=== PATIENT | male | born 1995 | race Caucasian/White ===

== ENCOUNTER 2017-06-08 13:14 | Day surgery (SDC) | payer OTHER ==
[~2017-06-08] VITALS: Ht 172.7 cm; Wt 90.5 kg
[2017-06-08] MEDS ORDERED: WELLBUTRIN SR100 M1 PO (13:28)
[2017-06-08] MEDS ORDERED: SINEQUAN 1010 MG/CAP PO (13:29)
[2017-06-08] MEDS ORDERED: NAPROSYN500 MG PO (13:30)
[2017-06-08] MEDS ORDERED: ROBAXIN 50500 MG/TAB PO (13:30)
[2017-06-08 13:40] VITALS: BP 118/83; PULSE 75; TEMP 98.9
[2017-06-08 14:35] VITALS: BP 119/61; PULSE 95; TEMP 98.5
[2017-06-08 14:50] VITALS: BP 117/67; PULSE 83
[2017-06-08] MEDS ORDERED: LEVBID0.375 MG PO (14:50)
[2017-06-08 15:05] VITALS: BP 107/69; PULSE 76
[2017-06-08 15:20] VITALS: BP 125/70; PULSE 76
== END 2017-06-08 15:45 | disposition home or self-care (01) ==
LOC: SDCO 13:14
DX: K92.2 Gastrointestinal hemorrhage, unspecified (principal); K59.00 Constipation, unspecified; R19.7 Diarrhea, unspecified; Z87.891 Personal history of nicotine dependence; Z83.79 Family history of other diseases of the digestive system
CPT/HCPCS: J2250; J2405; J3010; J7030

== ENCOUNTER → 2017-08-01 | Outpatient (CLI) | payer OTHER ==
[~2017-08-01] MED LIST: LEVBID0.375 MG PO; NAPROSYN500 MG PO; ROBAXIN 50500 MG/TAB PO; SINEQUAN 1010 MG/CAP PO; WELLBUTRIN SR100 M1 PO
== END ==
LOC: MHCPAIN 13:30
DX: G89.29 Other chronic pain (principal); M47.27 Other spondylosis with radiculopathy, lumbosacral region
CPT/HCPCS: G0463

== ENCOUNTER → 2017-08-30 | Outpatient (CLI) | payer OTHER | LOC: MHCPAIN 09:49 | DX: M47.27 Other spondylosis with radiculopathy, lumbosacral region (principal); M51.26 Other intervertebral disc displacement, lumbar region | CPT/HCPCS: J1100; J2250; J3010; Q9967 ==

== ENCOUNTER → 2017-09-12 | Outpatient (CLI) | payer OTHER | LOC: MHCPAIN 14:54 | DX: G89.29 Other chronic pain (principal); M47.817 Spondylosis without myelopathy or radiculopathy, lumbosacral region; M54.16 Radiculopathy, lumbar region; M53.3 Sacrococcygeal disorders, not elsewhere classified | CPT/HCPCS: G0463 ==

== ENCOUNTER → 2017-09-18 | Outpatient (CLI) | payer OTHER | LOC: MHCPAIN 13:51 | DX: M54.16 Radiculopathy, lumbar region (principal) | CPT/HCPCS: J1040 ==

== ENCOUNTER → 2017-10-22 | Outpatient (CLI) | payer OTHER | LOC: MHCPAIN 14:10 | DX: G89.29 Other chronic pain (principal); M47.817 Spondylosis without myelopathy or radiculopathy, lumbosacral region; M54.16 Radiculopathy, lumbar region; M53.3 Sacrococcygeal disorders, not elsewhere classified | CPT/HCPCS: G0463 ==

== ENCOUNTER → 2017-10-30 | Outpatient (CLI) | payer OTHER | LOC: MHCPAIN 15:01 | DX: G57.01 Lesion of sciatic nerve, right lower limb (principal) | CPT/HCPCS: 64646; J0585 ==

== ENCOUNTER → 2017-12-04 | Outpatient (CLI) | payer OTHER | LOC: MHCPAIN 15:00 | DX: G89.29 Other chronic pain (principal); M47.817 Spondylosis without myelopathy or radiculopathy, lumbosacral region; M54.16 Radiculopathy, lumbar region; M53.3 Sacrococcygeal disorders, not elsewhere classified | CPT/HCPCS: G0463 ==

== ENCOUNTER → 2017-12-13 | Outpatient (CLI) | payer OTHER | LOC: MHCPAIN 12:45 | DX: M47.817 Spondylosis without myelopathy or radiculopathy, lumbosacral region (principal); M51.27 Other intervertebral disc displacement, lumbosacral region; M48.07 Spinal stenosis, lumbosacral region | CPT/HCPCS: J1040; J2250; J3010; Q9967 ==

== ENCOUNTER → 2018-01-14 | Outpatient (CLI) | payer OTHER | LOC: MHCPAIN 09:17 | DX: G89.29 Other chronic pain (principal); M47.817 Spondylosis without myelopathy or radiculopathy, lumbosacral region; M54.16 Radiculopathy, lumbar region; M53.3 Sacrococcygeal disorders, not elsewhere classified; M96.1 Postlaminectomy syndrome, not elsewhere classified | CPT/HCPCS: G0463 ==